=== PATIENT | female | born 1950 | race Caucasian/White ===

== ENCOUNTER 2018-02-10 14:27 | Emergency (ER) | payer MEDICARE, OTHER ==
[~2018-02-10] VITALS: Ht 167.6 cm; Wt 60.0 kg
[2018-02-10 14:36] VITALS: BP 133/79; PULSE 74; RESP 18; TEMP 98.4; O2SAT 99
[2018-02-10 17:17] VITALS: BP 143/70; PULSE 74; RESP 17; O2SAT 99
[2018-02-10] MEDS ORDERED: ASPIRIN 325 MG TAB PO ONE (17:45)
--- NOTE | 2018-02-10 17:47 | RADRPT ---
EXAM DATE/TIME: 02/10/2018 17:31 [place] COMPARISON: No previous studies available for comparison. INDICATIONS : Chest pain. MEDICAL HISTORY : None. SURGICAL HISTORY : None. ENCOUNTER: Initial ACUITY: 3 days PAIN SCORE: 4/10 LOCATION: chest FINDINGS: A single view of the chest demonstrates the lungs to be symmetrically aerated without evidence of mas s, infiltrate or effusion. The cardiomediastinal contours are unremarkable. Osseous structures are intact. CONCLUSION: The lungs are clear. Jw Trammell MD on February 10, 2018 at 17:44 Board Certified Radiologist. This report was verified electronically.
[2018-02-10 17:57] LABS: AUTOMATED NEUTROPHIL # 2.8 TH/MM3 (1.8-7.7); BASOPHIL # 0.1 TH/MM3 (0-0.2); BASOPHIL % 1.2 % (0.0-2.0); HEMATOCRIT 39.3 % (35.0-46.0); HEMOGLOBIN 13.4 GM/DL (11.6-15.3); LYMPHOCYTE # 1.3 TH/MM3 (1.0-4.8); MEAN CELL VOLUME 91.1 FL (80.0-100.0); MEAN CORPUSCULAR HEMOGLOBIN 30.9 PG (27.0-34.0); MEAN PLATELET VOLUME 7.6 FL (7.0-11.0); MONO % 8.4 % (0.0-8.0); MONOCYTE # 0.4 TH/MM3 (0-0.9); NEUT % 60.4 % (16.0-70.0); PLATELET COUNT 299 TH/MM3 (150-450); RED BLOOD COUNT 4.32 MIL/MM3 (4.00-5.30); RED CELL DISTRIBUTION WIDTH 14.8 % (11.6-17.2); WHITE BLOOD COUNT 4.6 TH/MM3 (4.0-11.0)
[2018-02-10 18:22] LABS: ALBUMIN 3.1 GM/DL (3.4-5.0); AST (GOT) 11 U/L (15-37); BICARBONATE 28.3 MEQ/L (21.0-32.0); BLOOD UREA NITROGEN 13 MG/DL (7-18); CALCIUM 8.8 MG/DL (8.5-10.1); CHLORIDE 105 MEQ/L (98-107); CREATININE 0.61 MG/DL (0.50-1.00); GLOMERULAR FILTRATION RATE 98 ML/MIN (>89); GLUCOSE,RANDOM 91 MG/DL (74-106); MAGNESIUM 2.1 MG/DL (1.5-2.5); SODIUM (NA) 139 MEQ/L (136-145)
[2018-02-10 18:24] LABS: ALT (GPT) 19 U/L (10-53)
[2018-02-10 18:33] LABS: ALKALINE PHOSPHATASE 54 U/L (45-117); TOTAL BILIRUBIN ADULT 0.5 MG/DL (0.2-1.0); TOTAL PROTEIN 7.3 GM/DL (6.4-8.2); TROPONIN I LESS THAN 0.02 NG/ML (0.02-0.05)
--- NOTE | 2018-02-10 19:08 | PD ---
HPI Chief Complaint: Cardiac Complaint Time Seen by Provider: 17:15 Travel History International Travel<30 days: No Contact w/Intl Traveler<30days: No Traveled to known affect area: No History of Present Illness HPI 67-year-old female that presents to the ED for evaluation of possible chest discomfort. Per patient he has a history of having significant abdominal pain and cramping that started on Tuesday. Per patient she was purchasing a car when this happened and then he went away that same day. Per patient ever since she has not been feeling well. Per patient she does not really have chest pain but he feels like her "chest is fatigued". She states that she has not been feeling well since and feeling somewhat "all". Per patient she colored her primary care doctor Dr. Chavarria who recommended ultrasounds. She had the ultrasound of the gallbladder to did not show any sign of acute disease other than per patient some calcifications of the aorta. Per patient she herself went online and looked up what this could be and she was concerned that this could be possibly heart related. She states that she has no shortness of breath. Per patient she has no pain. No diarrhea or bowel movement issues. Denies any nausea or vomit and states that her stomach feels achy but otherwise no pain. She states that the discomfort on the chest is not really painful or pressure-like it just feels like it is "fatigued". She cannot really explain any other way. Per patient a discomfort in the abdomen is 2 out of 10 if any. PFSH Past Medical History Medical History: Denies Significant Hx Diminished Hearing: No Tetanus Vaccination: < 5 Years Menopausal: Yes Past Surgical History Tonsillectomy: Yes Social History Alcohol Use: No (RARELY) Tobacco Use: No Substance Use: No Allergies-Medications (Allergen,Severity, Reaction): Coded Allergies: No Known Allergies (Unverified , 02/10/18) Reported Meds & Prescriptions Reported Meds & Active Scripts Active No Active Prescriptions or Reported Medications Review of Systems Except as stated in HPI: all other systems reviewed are Neg Physical Exam Narrative GENERAL: SKIN: Warm and dry. HEAD: Atraumatic. Normocephalic. EYES: Pupils equal and round. No scleral icterus. No injection or drainage. ENT: No nasal bleeding or discharge. Mucous membranes pink and moist. Tongue is midline. No uvula deviation. NECK: Trachea midline. No JVD. CARDIOVASCULAR: Regular rate and rhythm. No murmurs, S3, S4. RESPIRATORY: No accessory muscle use. Clear to auscultation. Breath sounds equal bilaterally. GASTROINTESTINAL: Abdomen soft, non-tender, nondistended. Hepatic and splenic margins not palpable. MUSCULOSKELETAL: Extremities without clubbing, cyanosis, or edema. No obvious deformities. Full range of motion of the upper and lower extremities bilaterally. 2+ pulses bilaterally. NEUROLOGICAL: Awake and alert. No obvious cranial nerve deficits. Motor grossly within normal limits. Five out of 5 muscle strength in the arms and legs. Normal speech. PSYCHIATRIC: Appropriate mood and affect; insight and judgment normal. Data Data Last Documented VS Vital Signs Date Time Temp Pulse Resp B/P (MAP) Pulse Ox O2 Delivery O2 Flow Rate FiO2 02/10/18 17:17 74 17 143/70 (94) 99 Room Air 02/10/18 14:36 98.4 Orders Orders Electrocardiogram (02/10/18 17:17) Complete Blood Count With Diff (02/10/18 17:17) Comprehensive Metabolic Panel (02/10/18 17:17) Ckmb (Isoenzyme) Profile (02/10/18 17:17) Troponin I (02/10/18 17:17) Prothrombin Time / Inr (Pt) (02/10/18 17:17) Act Partial Throm Time (Ptt) (02/10/18 17:17) Lipase (02/10/18 17:17) Urinalysis - C+S If Indicated (02/10/18 17:17) Magnesium (Mg) (02/10/18 17:17) Thyroid Stimulating Hormone (02/10/18 17:17) Chest, Single Ap (02/10/18 17:17) Iv Access Insert/Monitor (02/10/18 17:17) Ecg Monitoring (02/10/18 17:17) Oximetry (02/10/18 17:17) Aspirin (Aspirin) (02/10/18 17:45) Ed Discharge Order (02/10/18 19:04) Labs Laboratory Tests Test 02/10/18 17:30 White Blood Count 4.6 TH/MM3 Red Blood Count 4.32 MIL/MM3 Hemoglobin 13.4 GM/DL Hematocrit 39.3 % Mean Corpuscular Volume 91.1 FL Mean Corpuscular Hemoglobin 30.9 PG Mean Corpuscular Hemoglobin Concent 34.0 % Red Cell Distribution Width 14.8 % Platelet Count 299 TH/MM3 Mean Platelet Volume 7.6 FL Neutrophils (%) (Auto) 60.4 % Lymphocytes (%) (Auto) 29.0 % Monocytes (%) (Auto) 8.4 % Eosinophils (%) (Auto) 1.0 % Basophils (%) (Auto) 1.2 % Neutrophils # (Auto) 2.8 TH/MM3 Lymphocytes # (Auto) 1.3 TH/MM3 Monocytes # (Auto) 0.4 TH/MM3 Eosinophils # (Auto) 0.0 TH/MM3 Basophils # (Auto) 0.1 TH/MM3 CBC Comment DIFF FINAL Differential Comment Prothrombin Time 10.0 SEC Prothromb Time International Ratio 1.0 RATIO Activated Partial Thromboplast Time 24.9 SEC Blood Urea Nitrogen 13 MG/DL Creatinine 0.61 MG/DL Random Glucose 91 MG/DL Total Protein 7.3 GM/DL Albumin 3.1 GM/DL Calcium Level 8.8 MG/DL Magnesium Level 2.1 MG/DL Alkaline Phosphatase 54 U/L Aspartate Amino Transf (AST/SGOT) 11 U/L Alanine Aminotransferase (ALT/SGPT) 19 U/L Total Bilirubin 0.5 MG/DL Sodium Level 139 MEQ/L Potassium Level 3.9 MEQ/L Chloride Level 105 MEQ/L Carbon Dioxide Level 28.3 MEQ/L Anion Gap 6 MEQ/L Estimat Glomerular Filtration Rate 98 ML/MIN Total Creatine Kinase 32 U/L Troponin I LESS THAN 0.02 NG/ML Lipase 114 U/L Thyroid Stimulating Hormone 3rd Gen 0.785 uIU/ML MDM Medical Decision Making Medical Screen Exam Complete: Yes Emergency Medical Condition: Yes Medical Record Reviewed: Yes Interpretation(s) CBC & BMP Diagram 02/10/18 17:30 Total Protein 7.3, Albumin 3.1 L, Calcium Level 8.8, Magnesium Level 2.1, Alkaline Phosphatase 54, Aspartate Amino Transf (AST/SGOT) 11 L, Alanine Aminotransferase (ALT/SGPT) 19, Total Bilirubin 0.5 troponin and CKMB negative EKG shows sinus rhythm with no sign of acute disease read by me and attending. Last Impressions Chest X-Ray 02/10/18 [id number] Signed Impressions: Service Date/Time: Saturday, February 10, 2018 17:31 - CONCLUSION: The lungs are clear. Jw Trammell MD lipase WNL Differential Diagnosis Chest pain versus atypical chest pain versus ACS versus pancreatitis versus GERD Narrative Course 67-year-old female that presents to the ED for evaluation of possible chest pain. Patient was properly examined and was found to have signs and symptoms of unclear etiology. Patient states that the only reason she is here is because her doctor recommended that she comes here to get evaluated. She denies any chest pain but states that it feels "fatigued". This has been ongoing for about a week. She does not have any risk factors for this as patient has no history of high blood pressure or diabetes. No history of high cholesterol. Labs and imaging were ordered. Labs and imaging were essentially unremarkable. I did discuss with the patient that this could be angina and patient will benefit from stress test to make sure she does not have anything acute especially with the heart. Patient was told that without proper testing she can have severe illness. She prefers to go home. Per patient she follows with her doctor very regularly and feels comfortable following with him and getting a stress test through him. Patient understands the risk of leaving without proper testing. She agrees and understands risks including and severe disability. She was told that if anything worsens she is to come back. She understands that she needs to follow with Dr. Chavarria her primary care doctor for further evaluation. See ED worsening symptoms. Follow-up with PCP. Diagnosis Primary Impression: Atypical chest pain Patient Instructions: General Instructions Additional Instructions: Follow-up with PCP. See ED for any worsening symptoms. Med/Other Pt SpecificInfo: No Change to Meds Scripts No Active Prescriptions or Reported Meds Disposition: 01 DISCHARGE HOME Condition: Stable Pedro Francois Feb 10, 2018 19:08
[2018-02-10 19:13] VITALS: BP 149/71; PULSE 68; RESP 18; O2SAT 98
--- NOTE | 2018-02-11 19:40 | EKG ---
Date Performed: 02/10/2018 Time Performed: 14:56:46 PTAGE: 67 years EKG: Sinus rhythm NORMAL ECG NO PREVIOUS TRACING DOCTOR: Dylan Chaves Interpretating Date/Time 02/11/2018 19:38:51
== END 2018-02-10 19:17 | disposition home or self-care (01) ==
LOC: NEPE 14:27
DX: R07.89 Other chest pain (principal); R53.83 Other fatigue; R10.9 Unspecified abdominal pain; I70.0 Atherosclerosis of aorta
CPT/HCPCS: 71045; 80053; 82550; 83690; 83735; 84443; 84484; 85025; 85610; 85730; 93005; 99285